=== PATIENT | female | born 1940 | race Caucasian/White ===

== ENCOUNTER → 2021-02-04 12:31 | Outpatient (CLI) | payer MEDICARE, OTHER, SELFPAY | PROVIDERS: PCP Family Medicine; Visit Provider Nurse Practitioner Family | DX: E78.5 Hyperlipidemia, unspecified (principal); I10 Essential (primary) hypertension; I25.10 Atherosclerotic heart disease of native coronary artery without angina pectoris; R00.2 Palpitations; R06.00 Dyspnea, unspecified; R94.31 Abnormal electrocardiogram [ECG] [EKG]; Z95.5 Presence of coronary angioplasty implant and graft | CPT/HCPCS: 93270 ==

== ENCOUNTER → 2021-02-09 06:59 | Outpatient (CLI) | payer MEDICARE, OTHER, SELFPAY ==
--- NOTE | 2021-02-09 07:01 | CA_ITS ---
APPROVED REPORT Exam: Exercise Treadmill Technologist: Lizz Diaz, Ht: 5 ft 4 in Wt: 125 lbs BSA: 1.60 m2 HR: 59 bpm BP: 146/47 mmHg Medical History Medications: Aspirin,,,,, Metoprolol,,,,, Calcium,,,,, RoSUVASTATIN,,,,, LevothRYROXINE,,,,, TriaMterene-hctz,,,,, Vitamin A,C,E,,,,, Stress Test Details Test: Arnie HR Resting HR: 59 bpm Max Heart Rate (APMHR): 142.617516 bpm Max HR Achieved: 170 bpm Target HR (85% APMHR): 120.207167 bpm % of APMHR: 119.72 Recovery HR: 74 bpm BP Resting BP: 149/64 mmHg Max BP: 169/56 mmHg Recovery BP: 169.0/56.0 mmHg ECG Resting ECG: NSR, PRWP anteriorly, low voltage Clinical Reason for Termination: Chest pain, Dyspnea Exercise duration: 06:00 min Highest Stage Achieved: Exercise capacity: 7.0 METs Stress ECG Conclusion Frequent PVC's/Trigeminy 6:00 Min 7.0 METs Short, 5 beat VTach run in early recovery. Max HR: 150 % of PM: 124 Test stopped due to: SOA, chest pain Symptoms: (+) Chest tightness/throat tightness. Arrhythmias/Ectopy: (+) PVC's, brief VTach ST-T Changes: 1.0 mm horizontal to down slopping ST Segment depression laterally that resolved in late recovery. Conclusion: Abnormal. See Nuclear imaging. Test Summary RECOVERY 08:00 0.0 0.0 71 . 169/ 56 . . REST . . . . . . . Standing REST 11:10 0.0 0.0 59 . 149/ 64 . . Stage 1 01:00 10.0 1.7 89 . . . . Stage 1 02:00 10.0 1.7 99 . . . . Stage 1 03:00 10.0 1.7 126 . 140/ 82 . . Stage 2 01:00 12.0 2.5 120 . . . . Stage 2 02:00 12.0 2.5 165 . . . . Stage 2 03:00 12.0 2.5 153 . . . Stop exercise at 06:00 RECOVERY 01:00 0.0 0.0 138 . . . . RECOVERY 02:00 0.0 0.0 97 . . . . RECOVERY 03:00 0.0 0.0 81 . 163/ 70 . . RECOVERY 04:00 0.0 0.0 74 . 169/ 56 . . RECOVERY 05:00 0.0 0.0 74 . 169/ 56 . . RECOVERY 06:00 0.0 0.0 75 . 169/ 56 . . RECOVERY 07:00 0.0 0.0 72 . 169/ 56 . . RECOVERY 08:00 0.0 0.0 71 . 169/ 56 . . RECOVERY 08:38 0.0 0.0 68 . 169/ 56 . . Electronically signed by : Mak Thurman MD 02/09/2021 17:51:14
--- NOTE | 2021-02-09 07:01 | NM_ITS ---
APPROVED REPORT Exam: Nuclear Stress Test Indication: CAD, Hx of [place], HTN, SOB, Palpitations, Abnormal EKG Patient Location: Outpatient Stress Tech: Lizz Diaz [place] Tech:Marisa Haddad, ARRT, RT (R)(N) Ht: 5 ft 4 in Wt: 125 lbs Bra Size: B HR: 59 bpm BP: 146/47 mmHg BSA: 1.60 m2 BMI: 21.4 History: CAD, Hx of [place], HTN, SOB, Palpitations, Abnormal EKG Procedure: Patient exercised on Arnie protocol 6:00 minutes and sec, resting heart rate 59 bpm, resting blood pressure 146/47 mmHg, with exercise maximum heart rate achived was 150 bpm which is 124 % of the maximum predicted heart rate and blood pressure was 140/82 mmHg. Test was stopped due to SOA and Chest pain. Patient has Adequate exercise capacity, achieved 7.0 METs of workload on treadmill, the blood pressure response to exercise was Abnormal. Electrocardiogram Resting electrocardiogram shows sinus rhythm, with exercise there is [address] segment depression noted from the baseline EKG. The EKG portion of the exercise Myoview is positive for ischemia. Cardiac Stress and Resting SPECT Images: Cardiac Stress and Resting SPECT images were obtained using technetium 99m Myoview 30.3 mCi stress and 9.98 mCi at rest. Gated SPECT for analysis of segmental wall motion and calculation of the ejection fraction also done. Prone images were also obtained. Cardiac stress and resting SPECT images show decreased tracer activity in a fixed pattern in inferolateral and lateral wall consistent with area of nontransmural myocardial scarring, computer derived ejection fraction is 50% with moderate inferolateral wall hypokinesis. Right ventricle is normal size and contractility. Conclusion: 1. The EKG portion of the exercise Myoview is positive for ischemia, patient has adequate exercise capacity achieved 7 mets of workload on treadmill, the blood pressure response to exercise was abnormal, test was stopped due to shortness of breath. 2. Scintigraphic evidence of moderate to large sized area of nontransmural myocardial scarring involving the inferolateral wall, computer derived ejection fraction is 50% with moderate inferolateral wall hypokinesis, right ventricle is normal size and contractility. 3. Abnormal exercise Myoview study. Electronically signed by : Mak Thurman MD 02/09/2021 18:23:17
--- NOTE | 2021-02-09 07:01 | CA_ITS ---
APPROVED REPORT EXAM: Comprehensive 2D, Doppler, and color-flow Echocardiogram [employer] Operator: Wendy Lauren RCS, RVS Ht: 5 ft 4 in Wt: 125lbs BSA: 1.60 BP: 139/47 mmHg Indications: Cad-stent, A-flutter, Abn EKG 2D Dimensions LA Volume 37.80 mL LA Volume Index 23.62 mL/m2 (M/F) 16-34 M-Mode Dimensions RVDd 0.84 cm (0.9-2.6) LA Diam 3.39 cm (1.9-4.0) LVDd 5.29 cm (3.5-5.7) Ao Diam 2.76 cm (2.0-3.7) LVDs 3.63 cm (3.5-5.7) IVSd 0.52 cm (0.6-1.1) PWd 0.61 cm (0.6-1.1) EF (Teich) 58.80% EPSs 0.44 cm FS 31.40% EDV (Teich) 134.80 mL ESV (Teich) 55.50 mL LV Diastology E Decel Time 267.00 (160-240 msec) E/A Ratio 0.8 MED E' 7.20 (< 7 cm/sec) MED A' 8.60 cm/s E'/MED E' Ratio 11.33 (>14) LAT E' 7.50 (<10 cm/sec) LAT A' 8.60 cm/s E/LAT E' Ratio 10.88 (>14) Aortic Valve LVOT Max 111.00 (70-110 cm/s) LVOT VTI 27.19 cm AoV Peak Gustavo. 138.00 (50-130 cm/s) AO Peak GR. 7.60 mmHg AO Mean GR. 3.80 (<5 mmHg) AO VTI 26.38 (18-25 cm) Mitral Valve MV E Max Gustavo. 82.00 (40-130 cm/s) MV A Velocity 99.00 (40-130 cm/s) E/A Ratio 0.83 MV Decel. Time 267.00 (160-240 ms) MV Mean Gr. 2.10 (<2mmHg) MV PHT 78.00 ms Pulmonary Valve PV Peak Velocity 79.00 (50-150 cm/s) NM End VMAX 95.00 cm/s Tricuspid Valve TR P. Velocity 217.00 cm/s Left Ventricle Left atrium is mildly enlarged, left ventricle is normal size, mild concentric left ventricular hypertrophy, visually estimated ejection fraction 55% with no regional wall motion abnormality, grade 1 diastolic dysfunction seen without tissue Doppler evidence of raise left atrial pressure. Right Ventricle Right atrium and right ventricle are normal size and contractility. Aortic Valve Aortic valve is minimally thickened and fibrosed, there is no aortic stenosis or aortic insufficiency. Mitral Valve Mitral valve leaflets are minimally thickened, there is mild mitral regurgitation. Tricuspid Valve Tricuspid valve grossly normal, there is mild tricuspid regurgitation, calculated right ventricular systolic pressure within normal range. Pulmonic Valve Pulmonic valve is poorly visualized. Great Vessels Aortic root is normal size. Inferior vena cava is normal size with normal inspiratory collapse. Pericardium No significant pericardial effusion noted. Conclusion 1. Mildly enlarged left atrium, normal left ventricular size, mild concentric left ventricular hypertrophy, visually estimated ejection fraction 55% with no regional wall motion abnormality, grade 1 diastolic dysfunction seen without tissue Doppler evidence of raise left atrial pressure. 2. Mild mitral and tricuspid regurgitation. Calculated right ventricular systolic pressure within normal range. 3. Inferior vena cava is normal size with normal inspiratory collapse. 4. No significant pericardial effusion noted. Electronically signed by : Mak Thurman MD 02/10/2021 06:57:18
--- NOTE | 2021-02-09 09:02 | HMH.ITSHM ---
Current Home Medications as stated by this patient Bette Romano or exhibit display representative. []VITAMINS TRIAMTERENE ROSUVASTATIN METOPROLOL LEVOTHYROXINE CALCIUM ASA
== END ==
PROVIDERS: PCP Family Medicine; Visit Provider Nurse Practitioner Family
DX: E78.5 Hyperlipidemia, unspecified (principal); I10 Essential (primary) hypertension; I25.10 Atherosclerotic heart disease of native coronary artery without angina pectoris; R00.2 Palpitations; R06.00 Dyspnea, unspecified; R94.31 Abnormal electrocardiogram [ECG] [EKG]; Z95.5 Presence of coronary angioplasty implant and graft
CPT/HCPCS: 78452; 93017; 93306; A9502

== ENCOUNTER 2021-02-13 09:07 | Emergency (ER) | payer MEDICARE, OTHER, SELFPAY ==
[2021-02-13] VITALS (9 sets, daily range): BP systolic 123–149; BP diastolic 59–70; PULSE 48–62; RESP 11–18; TEMP 36.6; O2SAT 90–99; BMI 21.4
--- NOTE | 2021-02-13 09:07 | ECG_ITS ---
APPROVED REPORT Exam: Resting ECG HR:56 bpm ECG Measurements Heart Rate 56 AXES IA 202 P 76 QRSd 74 QRS -35 QT 438 T 31 QTc 422 Conclusion Sinus bradycardia Left axis deviation Low voltage QRS Late r wave progression Abnormal ECG Electronically signed by : Riley Haas MD 02/13/2021 16:42:40
--- NOTE | 2021-02-13 09:17 | XR_ITS ---
PROCEDURE: XR CHEST PORTABLE CLINICAL HISTORY: cough COMPARISON: No exams were available for comparison FINDINGS: Borderline cardiomegaly without failure. External cardiac device noted projecting over the left hilar region. The lungs are clear without infiltrates, suspicious nodules, or pleural effusions. Calcified granuloma right midlung. No acute bony findings. IMPRESSION: No acute findings. Dictated by: Damian Mcmahon MD 02/13/2021 10:08 Damian Mcmahon MD in [place] 02/13/2021 10:08
--- NOTE | 2021-02-13 09:25 | PC.NURSE ---
rad at bedside
[2021-02-13 09:30] LABS: Basophils # 0.1 K/mm3 (0-0.2); Basophils % 0.8 % (0.1-2.0); Eosinophils # 0.4 K/mm3 (0.0-0.4); Eosinophils % 7.1 % (0.1-12.0); Hematocrit 43.1 % (37.0-47.0); Hemoglobin 13.8 g/dL (12.2-16.2); Lymphocytes # 1.2 K/mm3 (0.7-4.5); Lymphocytes % 20.4 % (10-50); Mean Corpuscular HGB Conc 32.1 g/dL (31.8-35.4); Mean Corpuscular Hemoglobin 32.7 pg (27.0-31.2); Mean Corpuscular Volume 101.8 fl (81-99); Mean Platelet Volume 8.7 fl (7.4-10.4); Monocytes # 0.5 K/mm3 (0.1-1.0); Monocytes % 8.4 % (1.7-9.3); Neutrophils # 3.7 K/mm3 (1.8-7.8); Neutrophils % 63.2 % (37.0-80.0); Platelet Count 216 K/mm3 (142-424); Red Blood Count 4.23 M/mm3 (4.20-5.40); Red Cell Distribution Width 11.9 % (11.5-17.5); White Blood Count 5.8 K/mm3 (4.8-10.8)
[2021-02-13 09:33] LABS: Chloride 100 mmol/L (98-107); Sodium 140 mmol/L (136-145)
--- NOTE | 2021-02-13 09:33 | HMH.EDGENADL ---
ED Disposition Clinical Impression: Palpitations Disposition: Home, Self-Care Condition on Discharge: Good Instructions: DI for Palpitations Referrals: Provider,Cathie, [Referring] - Drew Ruiz MD [Staff Physician] - - Critical Care Critical Care Time: No Attestation: On 02/13/21, the high probability of a clinically significant, sudden or life threatening deterioration of the following system(s) required my full and direct attention, intervention and personal management. The time I documented below is in addition to time spent performing reported procedures but includes the following listed in this critical care notation. Medical Decision Making - Medical Records Medical records reviewed: Yes: I reviewed the patient's medical records. - Ty Inquiry Pt receiving controlled substance: No Vital Signs: 02/13/21 09:10 02/13/21 09:14 02/13/21 09:30 Temperature 97.9 F Temperature Source Oral Pulse Rate 56 L 48 L Pulse Rate [Right Radial] 62 Respiratory Rate 18 14 13 Blood Pressure 149/63 H 138/70 Blood Pressure [Right Arm] 149/63 H Blood Pressure Mean 87 Blood Pressure Mean [Right Arm] 91 Blood Pressure Source [Right Arm] Automatic Cuff Blood Pressure Position [Right Arm] Sitting 02 Sat by Pulse Oximetry 98 99 90 L Oxygen Delivery Method Room Air 02/13/21 10:00 02/13/21 10:15 02/13/21 10:30 Temperature Temperature Source Pulse Rate 51 L 58 L 55 L Pulse Rate [Right Radial] Respiratory Rate 12 11 L 16 Blood Pressure 123/61 123/61 133/69 Blood Pressure [Right Arm] Blood Pressure Mean 90 Blood Pressure Mean [Right Arm] Blood Pressure Source [Right Arm] Blood Pressure Position [Right Arm] 02 Sat by Pulse Oximetry 98 99 97 Oxygen Delivery Method 02/13/21 11:00 Temperature Temperature Source Pulse Rate 56 L Pulse Rate [Right Radial] Respiratory Rate 13 Blood Pressure 127/59 L Blood Pressure [Right Arm] Blood Pressure Mean Blood Pressure Mean [Right Arm] Blood Pressure Source [Right Arm] Blood Pressure Position [Right Arm] 02 Sat by Pulse Oximetry 97 Oxygen Delivery Method - Lab Data Lab Results 02/13/21 09:12: WBC 5.8, RBC 4.23, Hgb 13.8, Hct 43.1, MCV 101.8 H, MCH 32.7 H, MCHC 32.1, RDW 11.9, Plt Count 216, MPV 8.7, Neut % (Auto) 63.2, Lymph % (Auto) 20.4, [place] % (Auto) 8.4, Eos % (Auto) 7.1, Baso % (Auto) 0.8, Neut # (Auto) 3.7, Lymph # (Auto) 1.2, [place] # (Auto) 0.5, Eos # (Auto) 0.4, Baso # (Auto) 0.1 02/13/21 09:12: PT 10.3, INR 0.86 L, APTT 23.9 02/13/21 09:12: Sodium 140, Potassium 4.0, Chloride 100, Carbon Dioxide 31 H, Anion Gap 13.0, BUN 25 H, Creatinine 1.00, Estimated Creat Clear 42, Estimated GFR 54 L, Est GFR ( Amer) 65, Glucose 99, Calcium 9.4, Total Bilirubin 0.4, AST 33, ALT 16, Alkaline Phosphatase 96, Troponin I < 0.01, NT-Pro-B Natriuret Pep 714 H, Total Protein 7.1, Albumin 4.3, Globulin 2.8, Albumin/Globulin Ratio 1.5, TSH 2.77 Result diagrams: 02/13/21 09:12 02/13/21 09:12 Orders (Tests/Meds): ORDERS Category Date Time Status Troponin I Q3H Lab 02/13/21 12:30 Ordered Troponin I Q3H Lab 02/13/21 15:30 Ordered 12-lead EKG Request [ECG Request by /Ana M] Stat Y 02/13/21 09:12 Ordered - Radiology Data #1 Image(s): Chest Image Reviewed: Yes I reviewed the patient's radiology results, Yes I reviewed the patient's radiology image, Yes I have reviewed radiologist's interpretation Preliminary Findings: Normal/NAD - ECG Data Tracing #1 Bradycardic rate of 56 bpm, UT interval 202 ms, normal QTC. Sinus bradycardia, left axis deviation, nonspecific changes. ECG initial impression date: 02/13/21 ECG initial impression time: 09:07 - Reevaluation(s) Time: 11:36 Reevaluation #1: On reevaluation, the patient is feeling fine. She is not had any palpitations while in the emergency department. We were able to interrogate her Holter monitor. She did have some PACs, however
[2021-02-13 09:35] LABS: Alanine Aminotransferase 16 U/L (12-78); Alkaline Phosphatase 96 U/L (38-126); Aspartate Amino Transferase 33 U/L (14-36); Bilirubin,Total 0.4 mg/dl (0.2-1.3); Blood Urea Nitrogen 25 mg/dl (7-17); Carbon Dioxide 31 mmol/L (22.0-30.0); Creatinine Clearance Estimated 42 mL/min (50-200); Estimated Glomerular Filt Rate 54 ml/min (>60); GFR (African American) 65 ML/MIN (>60)
[2021-02-13 09:36] LABS: Albumin Level 4.3 g/dl (3.5-5.0); Albumin/Globulin Ratio 1.5 (1.1-1.8); Calcium 9.4 mg/dl (8.4-10.2); Globulin 2.8 g/dL (1.3-3.2); Glucose 99 mg/dl (74-100); Total Protein,Serum 7.1 g/dl (6.3-8.2)
[2021-02-13 09:37] LABS: Activated Partial Thrombo Time 23.9 seconds (22.8-30.6); Prothrombin Time 10.3 seconds (10.1-12.5)
[2021-02-13 09:39] LABS: INR 0.86 (0.9-1.1)
[2021-02-13 09:57] LABS: NT Pro Brain Natriuretic Pep. 714 pg/mL (0-450)
[2021-02-13 10:01] LABS: Troponin I < 0.01 ng/ml (0.00-0.034)
--- NOTE | 2021-02-13 10:04 | PC.NURSE ---
Dr Jones speaking with RAGHAV Cheng
[2021-02-13 10:18] LABS: Thyroid Stimulating Hormone 2.77 uIU/mL (0.465-4.68)
--- NOTE | 2021-02-13 11:12 | PC.NURSE ---
monserrat joseph paged
--- NOTE | 2021-02-13 11:19 | PC.NURSE ---
MARCO Leavitt here to see pt.
== END 2021-02-13 12:08 | disposition home or self-care (01) ==
PROVIDERS: Emergency Provider Emergency Medicine; PCP Family Medicine
DX: R00.2 Palpitations (principal); I25.10 Atherosclerotic heart disease of native coronary artery without angina pectoris; E78.5 Hyperlipidemia, unspecified; I10 Essential (primary) hypertension
CPT/HCPCS: 71045; 80053; 83880; 84443; 84484; 85025; 85610; 85730; 93005; 99284

== ENCOUNTER → 2021-03-02 07:56 | Outpatient (CLI) | payer MEDICARE, OTHER, SELFPAY ==
[2021-03-02 08:38] LABS: Basophils # 0.1 K/mm3 (0-0.2); Basophils % 0.8 % (0.1-2.0); Eosinophils # 0.5 K/mm3 (0.0-0.4); Eosinophils % 7.2 % (0.1-12.0); Hematocrit 42.2 % (37.0-47.0); Hemoglobin 13.6 g/dL (12.2-16.2); Lymphocytes # 1.5 K/mm3 (0.7-4.5); Lymphocytes % 21.1 % (10-50); Mean Corpuscular HGB Conc 32.3 g/dL (31.8-35.4); Mean Corpuscular Hemoglobin 33.2 pg (27.0-31.2); Mean Corpuscular Volume 102.7 fl (81-99); Mean Platelet Volume 9.1 fl (7.4-10.4); Monocytes # 0.5 K/mm3 (0.1-1.0); Monocytes % 6.6 % (1.7-9.3); Neutrophils # 4.5 K/mm3 (1.8-7.8); Neutrophils % 64.2 % (37.0-80.0); Platelet Count 237 K/mm3 (142-424); Red Blood Count 4.11 M/mm3 (4.20-5.40); Red Cell Distribution Width 12.4 % (11.5-17.5)
[2021-03-02 08:53] LABS: Chloride 102 mmol/L (98-107); Potassium 4.3 mmoL/L (3.5-5.1); Sodium 141 mmol/L (136-145)
[2021-03-02 08:56] LABS: Anion Gap 9.3 mEq/L (5-15); Blood Urea Nitrogen 21 mg/dl (7-17); Calcium 9.3 mg/dl (8.4-10.2); Carbon Dioxide 34 mmol/L (22.0-30.0); Estimated Glomerular Filt Rate 54 ml/min (>60); GFR (African American) 65 ML/MIN (>60); Glucose 99 mg/dl (74-100)
== END ==
PROVIDERS: Visit Provider Urology
DX: E78.5 Hyperlipidemia, unspecified (principal); I10 Essential (primary) hypertension; I25.10 Atherosclerotic heart disease of native coronary artery without angina pectoris; R00.2 Palpitations; R06.00 Dyspnea, unspecified; R94.30 Abnormal result of cardiovascular function study, unspecified; R94.31 Abnormal electrocardiogram [ECG] [EKG]; Z95.5 Presence of coronary angioplasty implant and graft; Z01.812 Encounter for preprocedural laboratory examination; Z20.822 Contact with and (suspected) exposure to COVID-19
CPT/HCPCS: 36415; 80048; 85025; C9803; U0003; U0005

== ENCOUNTER 2021-03-03 08:59 | Day surgery (SDC) | payer MEDICARE, OTHER, SELFPAY ==
[2021-03-03] VITALS (9 sets, daily range): BP systolic 117–155; BP diastolic 52–100; PULSE 50–84; RESP 15–18; O2SAT 95–98; BMI 21.2
--- NOTE | 2021-03-03 07:23 | IR_ITS ---
APPROVED REPORT Patient Location: Outpatient PROCEDURES Left heart catheterization Left ventriculogram Selective coronary angiogram INDICATION High risk abnormal Myoview, Angina pectoris, Informed consent was obtained prior to the procedure. COMPLICATIONS NONE Estimated Blood Loss: LESS THAN 10 ML TECHNIQUE One percent lidocaine used to anesthetize the right anterior aspect of the wrist. The right radial artery was accessed via the Seldinger technique. A 6 [place] sheath was placed in the right radial artery. 2.5 mg of verapamil, 800 mcg of nitroglycerin, 1mg Lidocaine and 5000 U Heparin were given through the arterial sheath. The trap catheter was also used to perform left heart catheterization, left ventriculogram and selective coronary angiogram. At the end of the diagnostic angiogram therapeutic heparin was administered. 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 AR-1 AR-2 3 DRC and AL 1 catheter were used to perform attempted diagnostic angiogram. The right coronary artery was never cannulated. After copious amounts of contrast and copious radiation it was decided to abandon the diagnostic procedure and proceed with CTA sometime next week. 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 It is possible this anomalous vessel may be easier to cannulate from the groin access. Patient was brought back to the [employer] Operator she will definitely go under right groin access for attempted revascularization if clinically indicated ANGIOGRAPHIC RESULTS The left main artery Is an ostial 30 to 40% stenosis The left anterior descending artery Is normal in the proximal segment and tortuous throughout its mid and distal segment The circumflex artery Is probably a codominant vessel and normal in the proximal segment with significant distal tortuosity The right coronary artery Is probably codominant and appears to have a severe ostial stenosis. There appears to be [id number] collaterals as well as some antegrade flow down the eagle vessel. 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 Recommend CTA of the coronary arteries next week to better determine if the right coronary artery is occluded or if it has a malignant course 2. Given the large inferior apical defect I probably would not recommend surgery at this time however consideration should be given to approach the anomalous right coronary artery from the groin access and attempt revascularization if clinically indicated 3. Continue medical management with risk factor modification 4. LDL less than 55 Electronically signed by : Drew Ruiz MD 03/03/2021 13:13:00
[2021-03-03 14:10] LABS: CATHL Activated Clotting Time 254 SEC (74-125)
== END 2021-03-03 15:10 | disposition home or self-care (01) ==
LOC: CATHLAB 09:00
PROVIDERS: PCP Family Medicine; Visit Provider Internal Medicine
DX: E78.5 Hyperlipidemia, unspecified (principal); I10 Essential (primary) hypertension; I25.118 Atherosclerotic heart disease of native coronary artery with other forms of angina pectoris; R00.2 Palpitations; R06.00 Dyspnea, unspecified; R94.30 Abnormal result of cardiovascular function study, unspecified; R94.31 Abnormal electrocardiogram [ECG] [EKG]; Z95.5 Presence of coronary angioplasty implant and graft
CPT/HCPCS: 85347; 93458; 99152; 99153; C1725; C1769; J1644; Q9966

== ENCOUNTER → 2021-03-11 06:12 | Outpatient (CLI) | payer MEDICARE, OTHER, SELFPAY ==
--- NOTE | 2021-03-11 06:14 | CT_ITS ---
PROCEDURE: CT ANGIO CORONARY ARTERY CLINCAL INDICATION: CAD COMPARISON: XA CL [facility] W VENTRICLE from 03/03/2021 TECHNIQUE: IV Contrast: 240 mL Isovue 370 Axial images obtained with sagittal and coronal reformats. All CT scans at the facility use one or more dose reduction, viz: automated exposure control, ma/kV adjustment per patient size (including targeted exams where dose is matched to indication, i.e. head), or iterative reconstruction technique. Gated post enhanced images are obtained. Two runs were made due to cardiac dysrhythmia. Both sequences are analyzed and reported below. FINDINGS: There is normal coronary artery anatomy. No evidence of malignant course of the RCA. Left main: The left main coronary artery arises from the left coronary cusp. There is a suspected ostial stenosis of the left main. The degree of stenosis is difficult to quantify due to the misregistration. Please refer to recent coronary catheterization. Calcific plaque is present at the ostium of the left main. Lad: Calcific plaque is present in the proximal LAD. Misregistration artifact however makes stenosis evaluation difficult. No significant stenosis evident. Please refer to recent coronary catheterization. There is cold dominant supply to the IV S from the LAD and PDA. Circumflex artery: Calcific plaque is also present at the proximal aspect of the circumflex with no significant stenosis suspected. Please refer to recent cardiac catheterization. RCA: The RCA arises from the right coronary cusp. Calcific plaque is present at the ostium of the RCA with severe stenosis. The degree of stenosis is unable to be calculated due to the misregistration artifact. There are areas of calcific plaque involving the mid/distal RCA. The RCA is a small-vessel giving rise to a small PDA. Co dominant supply to the IVS.. Posterior lateral branch to the left ventricle is not demonstrated. IMPRESSION: Normal coronary artery anatomy origin Severe ostial stenosis of the RCA which is a small vessel with calcific plaque throughout its course giving rise to small PDA. The degree of stenosis is difficult to calculate secondary to misregistration/motion artifact from cardiac dysrhythmia Questionable ostial stenosis of the left main. Calcific plaque is present at the origin of the left main and within the proximal LAD and circumflex. The degree of stenosis is difficult to calculate due to misregistration artifact. Please refer to recent coronary catheterization.. Cold dominant supply to the IVS Dictated by: Damian Mcmahon MD 03/12/2021 10:54 Damian Mcmahon MD in [facility] 03/12/2021 10:54
[2021-03-11 07:06] VITALS: BMI 21.4
== END ==
PROVIDERS: PCP Family Medicine; Visit Provider Internal Medicine
DX: I25.10 Atherosclerotic heart disease of native coronary artery without angina pectoris (principal)
CPT/HCPCS: 75574; Q9967

== ENCOUNTER → 2022-03-30 14:03 | Outpatient (POV) | payer MEDICARE, OTHER, SELFPAY | PROVIDERS: Visit Provider Dermatology | DX: Z00.00 Encounter for general adult medical examination without abnormal findings (principal) ==

== ENCOUNTER 2023-07-25 11:26 | Outpatient (CLI) | payer MEDICARE, OTHER, SELFPAY ==
[2023-07-25 12:06] LABS: Basophils % 0.6 % (0.1-2.0); Eosinophils # 0.3 K/mm3 (0.0-0.4); Eosinophils % 4.6 % (0.1-12.0); Hematocrit 43.2 % (37.0-47.0); Hemoglobin 14.6 g/dL (12.2-16.2); Lymphocytes # 1.2 K/mm3 (0.7-4.5); Lymphocytes % 17.5 % (10-50); Mean Corpuscular HGB Conc 33.7 g/dL (31.8-35.4); Mean Corpuscular Hemoglobin 35.6 pg (27.0-31.2); Mean Corpuscular Volume 105.7 fl (81-99); Mean Platelet Volume 9.1 fl (7.4-10.4); Monocytes # 0.5 K/mm3 (0.1-1.0); Monocytes % 7.2 % (1.7-9.3); Neutrophils % 70.2 % (37.0-80.0); Platelet Count 225 K/mm3 (142-424); Red Blood Count 4.09 M/mm3 (4.20-5.40); Red Cell Distribution Width 12.1 % (11.5-17.5); White Blood Count 7.1 K/mm3 (4.8-10.8)
[2023-07-25 12:30] LABS: Alanine Aminotransferase 16 U/L (12-78); Albumin Level 4.4 g/dl (3.5-5.0); Alkaline Phosphatase 94 U/L (38-126); Anion Gap 8.1 mEq/L (5-15); Aspartate Amino Transferase 30 U/L (14-36); Bilirubin,Indirect 0.5 mg/dL (0.0-0.9); Bilirubin,Total 0.5 mg/dl (0.2-1.3); Bilirubin,Unconjugated 0.5 mg/dL (0.0-1.1); Blood Urea Nitrogen 28 mg/dl (7-17); Calcium 9.6 mg/dl (8.4-10.2); Carbon Dioxide 36 mmol/L (22.0-30.0); Chloride 100 mmol/L (98-107); Chol/HDL Ratio 2.5 (1-3.5); Cholesterol 172 mg/dl (140-200); Estimated Glomerular Filt Rate 43 ml/min (>60); GFR (African American) 52 ML/MIN (>60); Glucose 93 mg/dl (74-100); HDL Cholesterol 69 mg/dl (40-60); Magnesium 2.3 mg/dl (1.6-2.3); Potassium 4.1 mmoL/L (3.5-5.1); Sodium 140 mmol/L (136-145); Total Protein,Serum 6.7 g/dl (6.3-8.2); Triglycerides 83 mg/dl (30-150); VLDL Cholesterol 17 mg/dL (0-40)
[2023-07-25 12:47] LABS: Free T4 (Free Thyroxine) 0.82 ng/dl (0.78-2.19)
[2023-07-25 13:00] LABS: Thyroid Stimulating Hormone 2.62 uIU/mL (0.465-4.68)
== END 2023-07-25 23:59 ==
LOC: LAB 11:28
PROVIDERS: PCP Family Medicine; Visit Provider Nurse Practitioner Family
DX: E78.5 Hyperlipidemia, unspecified (principal); I10 Essential (primary) hypertension; I25.10 Atherosclerotic heart disease of native coronary artery without angina pectoris; R06.00 Dyspnea, unspecified; R94.31 Abnormal electrocardiogram [ECG] [EKG]; Z95.5 Presence of coronary angioplasty implant and graft
CPT/HCPCS: 36415; 80048; 80061; 80076; 83735; 84439; 84443; 85025

== ENCOUNTER 2023-08-08 12:03 | Outpatient (CLI) | payer MEDICARE, OTHER, SELFPAY ==
--- NOTE | 2023-08-08 12:04 | CA_ITS ---
APPROVED REPORT EXAM: Comprehensive 2D, Doppler, and color-flow Echocardiogram [place] [facility] Assistant: Mitzi Downey RDCS Ht: 5 ft 4 in Wt: 118lbs BSA: 1.56 BP: 126/58 mmHg Indications: SOA,CAD 2D Dimensions Left Atrium 3.23 cm F: 2.7 - 3.8 EF AP4 43.60 % LVOT 1.60 cm (M/F) 1.5-2.5 GL Strain -18.3 % M-Mode Dimensions RVDd 1.31 cm (0.9-2.6) LVDd 4.75 cm (3.5-5.7) Ao Diam 2.42 cm (2.0-3.7) LVDs 3.81 cm (3.5-5.7) IVSd 0.56 cm (0.6-1.1) PWd 0.56 cm (0.6-1.1) EF (Teich) 40.60% FS 19.80% EDV (Teich) 104.90 mL ESV (Teich) 62.30 mL LV Diastology E Decel Time 311 (160-240 msec) E/A Ratio 0.7 MED E' 5.2 (>= 7 cm/sec) E'/MED E' Ratio 11.37 (<= 14) LAT E' 6.2 (>= 10 cm/sec) E/LAT E' Ratio 9.53 (<= 14) Mitral Valve MV E Max Gustavo. 59.0 (40-130 cm/s) MV A Velocity 88.0 (40-130 cm/s) E/A Ratio 0.67 MV Decel. Time 311 (160-240 ms) Left Ventricle The left ventricle is normal size. Left ventricular systolic function is mildly decreased. There is normal left ventricular wall thickness. There is mild global hypokinesis present. There is moderate hypokinesis of the septal and inferior septal LV estrada. Grade 1 diastolic dysfunction is present. LVEF is 45%. Right Ventricle The right ventricle is normal size. The right ventricular systolic function is normal. Atria The left atrium size is normal. The right atrium size is normal. There is no Doppler evidence of interatrial shunt. Aortic Valve The aortic valve is mildly thickened. There is no aortic valvular stenosis. Trace aortic regurgitation. Mitral Valve The mitral valve leaflets are mildly thickened. No evidence of mitral valve stenosis. Mild mitral regurgitation. Tricuspid Valve The tricuspid valve leaflets are thin and pliable. Mild tricuspid regurgitation. RVSP is normal. Pulmonic Valve The pulmonary valve is normal in structure. Trace pulmonic regurgitation. Great Vessels The aortic root is normal in size. The ascending aorta is not well-visualized. IVC is normal in size and collapses >50% with inspiration. Pericardium There is no pericardial effusion. Other Information Study Quality: Fair Conclusion Mildly reduced LV systolic function (LVEF 45%). Moderate hypokinesis of the septal and inferior septal LV estrada Mild MR, mild TR. Compared to prior study from 02/09/2021, the reduction in LVEF is new. Electronically signed by : Glory Hadley MD 08/09/2023 23:44:08
--- NOTE | 2023-08-08 12:12 | NM_ITS ---
APPROVED REPORT Exam: Nuclear Stress Test Indication: CAD, H/O [place], HTN, FM HX, SOB Patient Location: Outpatient Stress Tech: Lizz Diaz [place] Tech:Marisa Haddad, ARRT, RT (R)(N) Ht: 5 ft 4 in Wt: 120 lbs Bra Size: 34A HR: 54 bpm BP: 143/61 mmHg BSA: 1.57 m2 Rhythm: NSR TID: 1.02 BMI: 20.5 History: CAD, H/O [place], HTN, FM HX, SOB Procedure: Patient received 0.4 mg of intravenous Lexiscan, resting heart rate 54 bpm, resting blood pressure 143/61 mmHg, with Lexiscan maximum heart rate achieved was 84 bpm which is % of the maximum predicted heart rate and blood pressure was 146/61 mmHg. With Lexiscan, patient denied any complaint of chest pain. Cardiac Stress and Resting SPECT Images: Cardiac Stress and Resting SPECT images were obtained using technetium 99m Myoview 30.0 mCi stress and 10.50 mCi at rest. Resting and stress imaging in supine and prone positions demonstrate a large sized, severe, fixed perfusion defect in the basal to mid inferior and inferolateral LV estrada. Gated imaging demonstrates mild reduction in global LV systolic function. There is moderate hypokinesis of the basal inferior and lateral LV estrada. LVEF is calculated at 45%. Conclusion: Large sized, severe, fixed perfusion defect in the basal to mid inferior and inferolateral LV estrada. Gated imaging demonstrates mild reduction in global LV systolic function. There is moderate hypokinesis of the basal inferior and lateral LV estrada. LVEF is calculated at 45%. Electronically signed by : Glory Hadley MD 08/10/2023 11:29:15
[2023-08-08] MEDS: REGADENOSON 0.4MG/5ML SYRINGE 0.400000000000000022 MG IV (14:26)
[2023-08-08] MEDS: ISOTOPE MYOVIEW (PER STUDY) 1 DOSE IV (14:26)
[2023-08-08] MEDS: SODIUM CHLORIDE 0.9% 10ML SYR (RAD ONLY) 10 ML IV ×2 (14:26)
--- NOTE | 2023-08-08 14:30 | CA_ITS ---
APPROVED REPORT Exam: Pharmacologic Technologist: Snehal Price Ht: 5 ft 4 in Wt: 118 lbs BSA: 1.56 m2 HR: 58 bpm BP: 143/61 mmHg Rhythm: NSR Indications: Dyspnea/ CAD Medical History Medications: Metoprolol Tartrate,,,,, HCTZ,,,,, Calcium,,,,, TriaMterene,,,,, Nitroglycerin,,,,, Evthyrox,,,,, Stress Test Details Test: LEXISCAN HR Resting HR: 54 bpm Max Heart Rate (APMHR): 140 bpm Max HR Achieved: 84 bpm Target HR (85% APMHR): 119 bpm % of APMHR: 60 Recovery HR: 74 bpm BP Resting BP: 143/61 mmHg Max BP: 146/61 mmHg Recovery BP: 146.0/61.0 mmHg ECG Resting ECG: Normal sinus rhythm, T wave changes Stress ECG: No significant ST changes Arrhythmia: PACs, PVCs Clinical Exercise duration: 04:00 min Highest Stage Achieved: Stress ECG Conclusion Symptoms: Denies Arrhythmias/Ectopy: Rare PAC/PVC ST-T Changes: No significant ST changes Conclusion: Unremarkable Lexiscan stress test. Myoview images reported separately. Test Summary REST . . . . . . . Resting REST 13:36 . . 54 . 143/ 61 . . Stage 1 . . . . . . . Myoview Injected Stage 1 01:00 . . 80 . . . . Stage 2 01:00 . . 82 . . . . Stage 3 01:00 . . 78 . 138/ 61 . . Stage 4 01:00 . . 76 . 138/ 62 . Stop exercise at 04:00 RECOVERY 01:00 . . 73 . . . . RECOVERY 01:57 . . 74 . 146/ 61 . . Electronically signed by : Glory Hadley MD 08/10/2023 11:27:33
== END 2023-08-08 23:59 ==
PROVIDERS: PCP Family Medicine; Visit Provider Nurse Practitioner Family
DX: R06.00 Dyspnea, unspecified (principal); I10 Essential (primary) hypertension; E78.5 Hyperlipidemia, unspecified; Z95.5 Presence of coronary angioplasty implant and graft; R94.31 Abnormal electrocardiogram [ECG] [EKG]; I25.10 Atherosclerotic heart disease of native coronary artery without angina pectoris
CPT/HCPCS: 78452; 93017; 93018; 93306; A9502; J2785

== ENCOUNTER 2023-09-20 15:32 | Outpatient (POV) | payer MEDICARE, OTHER, SELFPAY | END 2023-09-20 23:59 | disposition home or self-care (01) | LOC: SC 15:32 | PROVIDERS: PCP Family Medicine; Visit Provider Dermatology | DX: Z00.00 Encounter for general adult medical examination without abnormal findings (principal) ==

== ENCOUNTER 2023-09-30 07:58 | Day surgery (SDC) | payer MEDICARE, OTHER, SELFPAY ==
[2023-09-30] VITALS (16 sets, daily range): BP systolic 123–172; BP diastolic 40–115; PULSE 46–66; RESP 16–20; TEMP 36.4; O2SAT 94–99; BMI 20.7
--- NOTE | 2023-09-30 07:02 | IR_ITS ---
APPROVED REPORT Patient Location: Outpatient PROCEDURES Selective coronary angiogram INDICATION Accelerated angina pectoris with known coronary disease Informed consent was obtained prior to the procedure. COMPLICATIONS NONE Estimated Blood Loss: LESS THAN 10 ML TECHNIQUE One percent lidocaine was used to anesthetize the right groin. The right femoral artery was accessed via the Seldinger technique. A 4-Belgian sheath was placed in the right femoral artery. The JL-4 JR4 multipurpose catheter AR-2 catheter and an AL-1 catheters were also used to perform left heart catheterization left ventriculogram and selective coronary angiogram. At the end of the procedure the patient was transferred to the post-op holding area in stable condition for arterial sheath removal. ANGIOGRAPHIC RESULTS The left main artery Has an ostial 30% stenosis The left anterior descending artery Is a large vessel widely patent with minimal 10% luminal regularities The circumflex artery Large codominant with diffuse proximal luminal irregularities. 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 Maximize antianginal medication 2. I do not recommend any percutaneous attempt at revascularizing the chronically occluded right coronary artery. This is collateralized from septal perforators to the distal LAD as well as an unusual collateral originating from the proximal LAD 3. Risk factor modification Electronically signed by : Drew Ruiz MD 09/30/2023 12:32:35
[2023-09-30 08:28] LABS: Basophils # 0.1 K/mm3 (0-0.2); Basophils % 1.1 % (0.1-2.0); Eosinophils # 0.4 K/mm3 (0.0-0.4); Eosinophils % 6.9 % (0.1-12.0); Hematocrit 42.3 % (37.0-47.0); Hemoglobin 13.5 g/dL (12.2-16.2); Lymphocytes # 1.4 K/mm3 (0.7-4.5); Lymphocytes % 24.5 % (10-50); Mean Corpuscular HGB Conc 31.9 g/dL (31.8-35.4); Mean Corpuscular Hemoglobin 32.6 pg (27.0-31.2); Mean Platelet Volume 8.9 fl (7.4-10.4); Monocytes # 0.5 K/mm3 (0.1-1.0); Monocytes % 8.1 % (1.7-9.3); Neutrophils # 3.3 K/mm3 (1.8-7.8); Neutrophils % 59.5 % (37.0-80.0); Platelet Count 229 K/mm3 (142-424); Red Blood Count 4.14 M/mm3 (4.20-5.40); White Blood Count 5.6 K/mm3 (4.8-10.8)
[2023-09-30 08:56] LABS: Chloride 103 mmol/L (98-107); Potassium 3.5 mmoL/L (3.5-5.1); Sodium 140 mmol/L (136-145)
[2023-09-30 08:58] LABS: Blood Urea Nitrogen 23 mg/dl (7-17); Creatinine Clearance Estimated 35 mL/min (50-200); Estimated Glomerular Filt Rate 48 ml/min (>60); GFR (African American) 58 ML/MIN (>60)
[2023-09-30 08:59] LABS: Anion Gap 6.5 mEq/L (5-15); Calcium 9.6 mg/dl (8.4-10.2); Carbon Dioxide 34 mmol/L (22.0-30.0); Glucose 96 mg/dl (74-100)
[2023-09-30] MEDS: 0.9 % SODIUM CHLORIDE 500 ML 25 ML IV (11:00)
[2023-09-30] MEDS: HEPARIN 1,000 UNITS/500ML NS (CATH LAB) 3000 UNIT IV (11:00)
[2023-09-30] MEDS: diphenhydrAMINE 50MG/ML VIAL 50 MG IV (11:01)
[2023-09-30] MEDS: LIDOCAINE 1% 10ML MDV 20 ML IJ (11:01)
[2023-09-30] MEDS: MIDAZOLAM HCL 1MG/1ML 5ML VIAL 1 MG IV (11:58)
[2023-09-30] MEDS: FENTANYL 100MCG/2ML VIAL 25 MCG IV (11:58)
[2023-09-30] MEDS: IOPAMIDOL-370 (76%);100ML BOTTLE 40 ML IV (12:27)
== END 2023-09-30 15:13 | disposition home or self-care (01) ==
PROVIDERS: PCP Family Medicine; Visit Provider Internal Medicine
DX: Q24.5 Malformation of coronary vessels (principal); I25.118 Atherosclerotic heart disease of native coronary artery with other forms of angina pectoris; R06.02 Shortness of breath; I25.83 Coronary atherosclerosis due to lipid rich plaque; E78.5 Hyperlipidemia, unspecified; I10 Essential (primary) hypertension; Z79.899 Other long term (current) drug therapy
CPT/HCPCS: 80048; 85025; 93454; 99152; C1725; C1769; J1644; Q9967

== ENCOUNTER 2024-03-21 13:54 | Emergency (ER) | payer MEDICARE, OTHER, SELFPAY ==
[2024-03-21 13:56] VITALS: BP 131/70; PULSE 52; RESP 13; TEMP 36.6; O2SAT 96; BMI 19.7
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
[2024-03-21 14:31] VITALS: BP 125/52; PULSE 51; O2SAT 96
--- NOTE | 2024-03-21 14:50 | XR_ITS ---
PROCEDURE INFORMATION: Exam: XR Left Elbow Exam date and time: 03/21/2024 2:51 PM Age: 83 years old Clinical indication: Pain; Elbow; Left; Additional info: Injury/pain TECHNIQUE: Imaging protocol: Radiologic exam of the left elbow. Views: 3 or more views. COMPARISON: No relevant prior studies available. FINDINGS: Bones/joints: No acute fracture or malalignment. No worrisome lytic or blastic osseous lesion. No appreciable cortical erosion or periosteal reaction. Joint spaces are preserved. Soft tissues: No soft tissue abnormality. No joint effusion. IMPRESSION: No acute fracture or malaligment.
[2024-03-21] MEDS: ACETAMINOPHEN 500MG TAB 1000 MG PO (15:20)
[2024-03-21 15:31] VITALS: BP 115/54; PULSE 53; O2SAT 96
[2024-03-21 15:36] LABS: Basophils # 0.1 K/mm3 (0-0.2); Basophils % 0.4 % (0.1-2.0); Eosinophils # 0.3 K/mm3 (0.0-0.4); Hematocrit 41.5 % (37.0-47.0); Hemoglobin 14.5 g/dL (12.2-16.2); Lymphocytes # 0.8 K/mm3 (0.7-4.5); Mean Corpuscular Hemoglobin 34.3 pg (27.0-31.2); Mean Corpuscular Volume 97.8 fl (81-99); Monocytes # 0.7 K/mm3 (0.1-1.0); Monocytes % 4.3 % (1.7-9.3); Neutrophils # 14.1 K/mm3 (1.8-7.8); Neutrophils % 88.2 % (37.0-80.0); Platelet Count 199 K/mm3 (142-424); Red Blood Count 4.24 M/mm3 (4.20-5.40); Red Cell Distribution Width 12.4 % (11.5-17.5)
[2024-03-21 15:38] LABS: MANUAL DIFFERENTIAL MANUAL DIFFERENTIAL (MANUAL DIFF)
[2024-03-21 15:44] LABS: Albumin Level 4.6 g/dl (3.5-5.0); Chloride 98 mmol/L (98-107); Potassium 3.9 mmoL/L (3.5-5.1); Sodium 139 mmol/L (136-145)
[2024-03-21 15:46] LABS: Alanine Aminotransferase 24 U/L (12-78); Aspartate Amino Transferase 44 U/L (14-36); Blood Urea Nitrogen 38 mg/dl (7-17); Creatinine Clearance Estimated 30 mL/min (50-200); Estimated Glomerular Filt Rate 43 ml/min (>60); GFR (African American) 52 ML/MIN (>60)
[2024-03-21 15:47] LABS: Albumin/Globulin Ratio 1.6 (1.1-1.8); Alkaline Phosphatase 67 U/L (38-126); Anion Gap 7.9 mEq/L (5-15); Bilirubin,Total 0.6 mg/dl (0.2-1.3); Calcium 9.5 mg/dl (8.4-10.2); Carbon Dioxide 37 mmol/L (22.0-30.0); Creatine Kinase 376 U/L (30-135); Globulin 2.8 g/dL (1.3-3.2); Glucose 63 mg/dl (74-100); Total Protein,Serum 7.4 g/dl (6.3-8.2)
[2024-03-21 16:00] VITALS: BP 113/76; PULSE 60; O2SAT 96
[2024-03-21 16:14] LABS: Eosinophils % 2 % (0-3); Lymphocytes % 9 % (10-50); Monocytes % 7 % (2-9); Neutrophils % 79 % (42-76); Total Cells Counted 100
[2024-03-21 16:15] LABS: Platelet Estimate Normal; RBC Morphology Normal
[2024-03-21 16:33] LABS: HIV (1&2) Antibody Rapid NONREACTIVE (NONREACTIVE)
[2024-03-21 17:06] VITALS: BP 113/76; PULSE 60; RESP 13; TEMP 36.7
[2024-03-22 09:33] LABS: HCV Ab Non Reactive (Non Reactive)
== END 2024-03-21 17:07 | disposition home or self-care (01) ==
PROVIDERS: Emergency Medicine; Physician Assistant; Emergency Provider Emergency Medicine; PCP Family Medicine
DX: S72.491A Other fracture of lower end of right femur, initial encounter for closed fracture (principal); M25.551 Pain in right hip; M79.604 Pain in right leg; V49.3XXA Car occupant (driver) (passenger) injured in unspecified nontraffic accident, initial encounter; Y93.89 Activity, other specified; Y92.008 Other place in unspecified non-institutional (private) residence as the place of occurrence of the external cause; M79.605 Pain in left leg; M25.552 Pain in left hip
CPT/HCPCS: 70450; 72125; 72170; 73080; 73552; 73562; 80053; 82550; 85007; 85025; 85027; 86803; 87389; 99284